=== PATIENT | male | born 1960 | race Caucasian/White ===

== ENCOUNTER → 2021-03-28 | Outpatient (CLI) | payer MEDICARE ==
[~2021-03-28] VITALS: Ht 177.8 cm; Wt 97.5 kg
== END ==
LOC: EROP 11:37
DX: U07.1 COVID-19 (principal); Z23 Encounter for immunization; J98.4 Other disorders of lung; G82.20 Paraplegia, unspecified
CPT/HCPCS: M0247; Q0247